=== PATIENT | female | born 1970 | race Caucasian/White ===

== ENCOUNTER 2024-05-30 07:57 | Outpatient (RCR) | payer BC, SELFPAY ==
--- NOTE | 2024-05-30 08:02 | PTOPEVAL1 ---
Assessment and note entered by Dutch Carlos Evaluation Information Assessment Status Evaluation Diagnosis leg pain Onset 05/26/24 Subjective Information Pt. reports she developed pain into both legs a couple years ago. She describes sharp pain through the thighs. She states that she also has tightness in the calves. She reports that she has recently increased her dose of Gabapentin. She reports she has also developed tingling into the hands. She states that she is able to sleep 8 hours despite her pain. She states that she has attempted stretching, heat and ice, with no pain relief. She states that she has been utilizing Gabapentin for about 2 months. She reports that symptoms are most prevalent in the evening and into the night. She reports that she has trouble keeping up with household activities due to developed pain and fatigue in the lower extremity. She had recent lab work, which was negative. She reports that her goal is to decrease the pain in her legs and improve her energy. Reported Pain Level Pain Score 2: Self Report Assessment PT Clinical Summary Pt. is a 53 year old female, who works in an office, entering the clinic due to chronic bilateral l.e. pain. Pt. presentation and symptoms consistent with degenerative changes of the lumbar spine. She currently presents with proximal l.e. weakness, impaired standing endurance, pain, abdominal weakness, impaired postural awareness and functional decline. Continued skilled PT is indicated in order to improve these areas to allow for improved IADL performance. Plan of Care Interventions Electrical Stimulation,Gait Training,Hot Pack/Cold Pack,Manual Therapy,Neuro Re-education,Patient/ Caregiver Education,Therapeutic Activities, Therapeutic Exercise PT Services Indicated Yes Treatment Frequency and 2x/week x 8 visits Duration These treatments will address the objective and functional deficits as defined above. The patient will be advanced safely and appropriately in order for the patient to progress towards his/her prior level of function. Additional exercises will be introduced and as well as a comprehensive home exercise program upon discharge, if needed, to ensure carryover of functional gains achieved in the clinic. This treatment plan has been reviewed and agreement upon by the patient.
--- NOTE | 2024-06-23 08:09 | OPREHPOC ---
Outpatient Therapy Plan of Care This is a Multidisciplinary Plan of Care that may contain components documented by all disciplines (PT, OT, and ST.) PT Problem 1 PT Problem #1 Knowledge Deficit PT Goal 1 Goal / Goal Update Pt. will be independent with a HEP addressing addressing mobility and strength. -met Target Visit 2 Progress Met PT Problem 2 PT Problem #2 Pain PT Goal 1 Goal / Goal Update Pt. will report 5/10 pain levels at worst with prolonged standing activities. -met Target Visit 8 Progress Met PT Problem 3 PT Problem #3 Impaired Strength PT Goal 1 Goal / Goal Update Pt. will present with 4/5 lower abdominal and oblique abdominal strength. -met Target Visit 8 Progress Met PT Problem 4 PT Problem #4 Impaired Functional Mobility PT Goal 1 Goal / Goal Update Pt. will present with less than 50% restriction with the LEFS -met Pt. will report being able to stand/walk for duration of 30-45 minutes with 5/10 pain levels at worst to improve IADL participation. -met Target Visit 8 Progress Met
--- NOTE | 2024-06-23 08:09 | PTOPDC ---
Assessment and note entered by Sherine Car, PT Evaluation Information Assessment Status Evaluation Diagnosis leg pain Onset 05/26/24 Subjective Information te reports overall she is doing better overall. She did have a little set back after playing golf and having a NCV. She feels comfortable continuing on her own. She has been walking almost everyday. She notes she has more energy and more strength since she started PT. Reported Pain Level Pain Score 0: Self Report Assessment PT Clinical Summary Te Sotomayor has completed 8 skilled PT visits for bilateral leg pain. She is reporting a significant improvement overall noting she feels stronger, has more energy, and minimal pain. She did have some leg pain after playing 9 holes of golf last weekend however, stretching has helped. She demonstrates improved LE strength, improved core strength, and improved endurance. She is independent in a home exercise program to continue and she has met all her goals. She will be discharged from skilled PT. Plan of Care PT Services Indicated No
== END 2024-06-23 20:00 | disposition home or self-care (01) ==
LOC: CHSPT 07:57
PROVIDERS: Visit Provider Nurse Practitioner Family
DX: M79.606 Pain in leg, unspecified (principal)
CPT/HCPCS: 97110; 97112; 97161; 97750

== ENCOUNTER 2024-11-24 12:15 | Outpatient (CLI) | payer BC, SELFPAY ==
--- NOTE | ~2024-11-24 | XR_ITS ---
EXAMINATION: XR knee RT 3V, 11/24/2024 12:30 CDT HISTORY: pain in unspec. ankle joints, foot unspec. knee pain COMPARISON: No comparisons available. Findings: No acute fracture or malalignment. No significant degenerative changes. Soft tissues unremarkable. Impression: No acute fracture or malalignment. Reviewed, dictated and finalized at location P. Impression: No acute fracture or malalignment.
--- NOTE | ~2024-11-24 | XR_ITS ---
EXAMINATION: XR ankle RT min 3V, 11/24/2024 12:30 CDT HISTORY: pain in unspec. ankle joints, foot unspec. knee pain COMPARISON: No comparisons available. Findings: No acute fracture or malalignment. No significant degenerative changes. Soft tissues unremarkable. Impression: No acute fracture or malalignment. Reviewed, dictated and finalized at location P. Impression: No acute fracture or malalignment.
--- NOTE | ~2024-11-24 | XR_ITS ---
EXAMINATION: XR ankle LT min 3V, 11/24/2024 12:30 CDT HISTORY: pain in unspec. ankle joints, foot unspec. knee pain COMPARISON: No comparisons available. Findings: No acute fracture or malalignment. No significant degenerative changes. Soft tissues unremarkable. Impression: No acute fracture or malalignment. Reviewed, dictated and finalized at location P. Impression: No acute fracture or malalignment.
--- NOTE | ~2024-11-24 | XR_ITS ---
EXAMINATION: XR knee LT 3V, 11/24/2024 12:30 CDT HISTORY: pain in unspec. ankle joints, foot unspec. knee pain COMPARISON: No comparisons available. Findings: No acute fracture or malalignment. No significant degenerative changes. Soft tissues unremarkable. Impression: No acute fracture or malalignment. Reviewed, dictated and finalized at location P. Impression: No acute fracture or malalignment.
--- OUTSIDE RECORDS SUMMARY | 2024-11-24 13:57 | XMS_ITS | Clinical Summary ---
Author Organization [facility] Address [address] [place] [address] Care Team Providers Care Security Investigator Name Role Phone Jose Loja MD Primary Care Provide r Allergies Active Allergy Reactions Criticality Noted Date Comments Hydrocodone Medications multivit-min/ir on/FA/vit K/lut (CENTRUM MINIS WOMEN 50 PLUS ORAL) Take by mouth Active magnesium oxide (MAG-OX) 250 mg (150.8 mg elemental) tabletIndicatio ns:hypomagnesem ia 1 tablet (250 mg total) daily Active gabapentin (NEURONTIN) 300 mg capsuleIndicati ons:Restless Legs Syndrome Take 1 cap (300 mg) PO tid 90 capsule 11 5 Active eszopiclone (LUNESTA) 2 mg tablet TAKE ONE TABLET BY MOUTH IMMEDIATELY BEFORE BEDTIME 30 tablet 5 5 Active Active Problems Problem Noted Date Diagnosed Date Paresthesia and pain of both upper extremities 0 09/20/2024 Back pain with sciatica 06/29/2024 ALYSHA (obstructive sleep apnea) 05/16/2024 Insomnia 05/16/2024 Resolved Problems Problem Noted Date Diagnosed Date Resolved Date Cervical spinal stenosis 06/29/202401/2025 RLS (restless legs syndrome) 05/16/2024 09/20/2024 Encounters Date Type Department Care Team Description 11/23/2024 Orders Only [facility] [address] [place] [address] [address] [address] Dutch Martin MD Pain in both knees, unspecified chronicity (Primary Dx) 09/20/2024 8:30 AM CDT Office Visit [facility] [address] [place] [address] [address] [place] [id number] Dutch Martin MD Paresthesia and pain of both upper extremities (Primary Dx); Back pain with sciatica 09/20/2024 Telephone [facility] [address] [facility] [address] [place] [id number] Reema aCstro MA from Last 3 Months Social History Tobacco Use Types Packs/Day Years Used Date Smoking Tobacco: Never Smokeless Tobacco: Never Tobacco Cessation:Counseling Given: Not Answered Comments Unknown Sex and Gender Information Value Date Recorded Sex Assigned at Not on file 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 Gender Identity Not on file Sexual Orientation Not on file Obstetrics History Last Filed Vital Signs Vital Sign Reading Time Taken Comments Blood Pressure 119/78 09/20/2024 8:36 AM CDT Pulse 83 09/20/2024 8:36 AM CDT Temperature 36.9 C (98.4 F) 12/21/2023 11:38 AM VETERINARY ASSISTANT Respiratory Rate 18 05/16/2024 9:57 AM CDT Oxygen Saturation 98% 09/20/2024 8:36 AM CDT Inhaled Oxygen Concentration - - Weight 62.3 kg (137 lb 6.4 oz) 09/20/2024 8:36 A M CDT Height 162.6 cm (5' 4.02) 09/20/2024 8:36 AM CD T Body Mass Index 23.57 09/20/2024 8:36 AM CDT Plan of Treatment Health Maintenance Due Date Last Done Comments Breast Cancer Screening-Mammogram 1969 Cervical Cancer Screening 1969 Colon Cancer Screening-Colonoscopy 1969 Depression Screening 1969 Hepatitis C Screening 1969 DTaP/Tdap/Td Vaccine (1 - Tdap) 1980 Hepatitis B Screening 11/29/1987 Regular Well Visit/Exam 18-64 11/29/1987 Zoster Vaccine (1 of 2) 11/29/2019 Influenza Vaccine (#1) 2024 Pneumococcal vaccine <65 Aged Out No longer eligible based on patient's age to complete this topic Insurance [email or web address] [place] Care Teams Security Investigator Relationship Specialty Start Date End Date Jose Loja MD [address] [place] [address] PCP - General Family Medicine 04/09/23
--- OUTSIDE RECORDS SUMMARY | 2024-11-24 13:57 | XMS_ITS | Encounter Summary ---
Author Organization [facility] Address [address] [place] [address] Care Team Providers Care Ore Charger Name Role Phone Jose Loja MD Primary Care Provide r Reason for Referral * Surgical (Routine) - Pending Review Specialty Diagnoses / Procedures Referred By Contac t Referred To Contact Orthopedic Surgery Diagnoses Pain in both knees, unspecified chronicity Dutch Martin MD [address] [place] [address] [address] [place] [address] Phone: tel: fax: Ajit Winston MD [address] [facility] [address] [place] [address] Phone: tel: fax: Referral ID Status Reason Start Date Expiration Date Visits Requested Visits Authorized [id number] Pending Review Specialty Services Required 5 12/23/2025 1 1 Question Answer Please select the performing region: External Order [171] To loc/pos [facility] [[id number]] To Provider NOTE: we will do our best to honor your provider preference, but scheduling the patient in a timely manner in our clinic will take precedence. AJIT WINSTON [[id number]] # of visits: 1 Comments Please evaluate and treat for knee pain. faxed to [phone]. 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 Mally Winston. faxed to [phone]. documented in this encounter Plan of Treatment Scheduled Referrals Name Type Priority Associated Diagnoses Orde r Schedule Ambulatory referral to Orthopedic Surgery Outpatient Referral Routine Pain in both knees, unspecified chronicity Expected: 01/23/2025 (Approximate), Expires: 11/23/2025 documented as of this encounter Visit Diagnoses Diagnosis Pain in both knees, unspecified chronicity- Primary documented in this encounter Care Teams Ore Charger Relationship Specialty Start Date End Date Jose Loja MD [address] [place] [address] PCP - General Family Medicine 04/09/23 documented as of this encounter
== END 2024-11-24 12:16 | disposition home or self-care (01) ==
LOC: CHSIMG 12:19
PROVIDERS: PCP Family Medicine; Visit Provider Family Medicine
DX: M25.571 Pain in right ankle and joints of right foot (principal); M25.572 Pain in left ankle and joints of left foot; M25.561 Pain in right knee
CPT/HCPCS: 73562; 73610